=== PATIENT | male | born 1950 | race Caucasian/White ===

== ENCOUNTER 2021-02-21 15:02 | Emergency (ER) | payer MEDICARE ==
[~2021-02-21] VITALS: Ht 177.8 cm; Wt 63.6 kg
[2021-02-21] MEDS ORDERED: FAMOTIDINE 20 MG TABLET PO ONE (15:45)
[2021-02-21] MEDS ORDERED: ChlorproMAZINE HCL 50 MG/2 ML AMP IM ONE (15:45)
[2021-02-21 17:07] VITALS: BP 134/78
== END 2021-02-21 17:12 | disposition home or self-care (01) ==
LOC: EMS 15:02
DX: R06.6 Hiccough (principal)
CPT/HCPCS: 71045; 96372; 99283; J3230